=== PATIENT | male | born 1995 | race Caucasian/White ===

== ENCOUNTER 2022-06-27 06:32 | Emergency (ER) | payer OTHER ==
[2022-06-27 06:38] VITALS: BP 149/84
[2022-06-27] MEDS: MOTRIN PO STA (07:16)
--- NOTE | 2022-06-27 07:19 | PCM.EKG ---
[facility] Test Date: 2022-06-27 Test Time: 07:13:26 Pat Name: ALTHEA AZAR Department: [id number] Room: Gender: M Care Worker: VIC : 1995 Requested By: AMY SIDDIQUI Order Number: [id number] Reading MD: Measurements Intervals [place] Rate: 61 P: 30 NC: 178 QRS: 81 QRSD: 103 T: 70 QT: 394 QTc: 397 Interpretive Statements Sinus rhythm ST elevation suggests acute pericarditis No previous ECG available for comparison Please click the below link to view image of tracing.
[2022-06-27 07:48] LABS: BASOPHIL # 0.1 10^3/uL (0.0-0.1); BASOPHIL % 0.6 % (0.0-0.2); EOSINOPHIL # 0.3 10^3/uL (0.0-0.2); EOSINOPHIL % 3.6 % (0.0-5.0); LYMPHOCYTES # 1.67 10^3/uL1 (1.0-4.8); MEAN CORP HGB 29.9 pg (26-34); MONOCYTES # 0.5 10^3/uL (0.3-0.8); MONOCYTES % 6.1 % (5.0-12.0); NEUTROPHIL # 5.8 10^3/uL (1.8-7.7); NEUTROPHILS % 69.5 % (41.0-85.0); PLATELET COUNT 297 10^3/uL (150-400)
[2022-06-27 08:08] LABS: CARBON DIOXIDE 30.7 mmol/L (20.0-32); GLUCOSE 92 mg/dL (70-110)
--- NOTE | 2022-06-27 08:40 | ER.PDOC ---
General Chief Complaint: Chest Pain-Non Cardiac Nature Stated Complaint: CHEST PAIN Time seen by MD: 07:00 Source: patient Exam Limitations: no limitations History of Present Illness Initial Comments 27-year-old male with no significant medical problems, presents with 1 day of chest pain. Points to left side of the chest wall. States it does hurt with ce rtain movements. Lifting his arm does make it worse. Breathing and does make it worse. No fever or chills. No cough or congestion. No leg pain or edema. Non-smoker Timing/Duration: 24 hours Severity/Quality: moderate Radiation: arms Activities at Onset: activity/exertion Allergies: Coded Allergies: No Known Allergies (Unverified , 06/27/22) Past Medical History Medical History: no pertinent history Surgical History: no surgical history Social History Alcohol Use: occassionally Drug Use: none All Other Systems: Reviewed and Negative Physical Exam General Appearance: No Apparent Distress HEENT: Normal ENT Inspection Neck: Normal Inspection Respiratory: lungs clear, no respiratory distress Cardiovascular: Normal Peripheral Pulses, Regular Rate, Rhythm, No Edema, No Murmur Gastrointestinal: Soft Extremities: Normal Inspection Neurologic/Psychiatric: Alert, Oriented x 3 Skin: Normal Color Lymphatic: No Adenopathy Results/Orders Results/Orders Orders - AMY SIDDIQUI MD EKG (06/27/22 07:10) Ibuprofen (Motrin) (06/27/22 07:10) Cbc With Auto Diff (06/27/22 07:34) Comprehensive Metabolic Panel (06/27/22 07:34) Troponin I High Sensitivity (06/27/22 07:34) Vital Signs Date Time Temp Pulse Resp B/P (MAP) Pulse Ox O2 Delivery O2 Flow Rate FiO2 06/27/22 06:38 97.8 74 18 149/84 (105) 99 Room Air* 0 21 06/27/22 06:38 97.8 74 18 99 06/27/22 06:38 97.8 74 18 Administered Medications Medications (Trade) Dose Ordered Sig/Karrie Route PRN Reason Start Time Stop Time Status Last Admin Dose Admin Ibuprofen (Motrin) 800 mg STAT STAT PO 06/27/22 07:10 06/27/22 07:11 DC 06/27/22 07:16 800 MG Laboratory Tests Test 06/27/22 07:43 White Blood Count 8.4 10^3/uL (4.5-11.0) Red Blood Count 4.69 10^6/uL (4.50-5.90) Hemoglobin 14.0 g/dL (13.9-16.3) Hematocrit 42.4 % (37.0-53.0) Mean Corpuscular Volume 90.4 fL (78-100) Mean Corpuscular Hemoglobin 29.9 pg (26-34) Mean Corpuscular Hemoglobin Concent 33.0 g/dL (33-36.5) Red Cell Distribution Width 12.0 % (11.5-14.5) Platelet Count 297 10^3/uL (150-400) Mean Platelet Volume 9.8 fL (7.8-11.0) Neutrophils (%) (Auto) 69.5 % (41.0-85.0) Lymphocytes (%) (Auto) 20.0 % (24.0-44.0) L Monocytes (%) (Auto) 6.1 % (5.0-12.0) Neutrophils # (Auto) 5.8 10^3/uL (1.8-7.7) Lymphocytes # (Auto) 1.67 10^3/uL1 (1.0-4.8) Monocytes # (Auto) 0.5 10^3/uL (0.3-0.8) Absolute Immature Granulocyte (auto 0.02 10^3 u/L (0-2) Absolute Eosinophils (auto) 0.3 10^3/uL (0.0-0.2) H Immature Granulocytes % 0.20 % (0.00-0.50) Eosinophils % 3.6 % (0.0-5.0) Basophils % 0.6 % (0.0-0.2) H Basophils # 0.1 10^3/uL (0.0-0.1) Sodium Level 142 mmol/L (132-145) Potassium Level 4.5 mmol/L (3.6-5.2) Chloride Level 107.0 mmol/L (96-109) Carbon Dioxide Level 30.7 mmol/L (20.0-32) Anion Gap 8.8 Blood Urea Nitrogen 14 mg/dL (7-18) Creatinine 1.10 mg/dL (0.59-1.40) Estimated GFR () 98.7 (>/=60) Est GFR (CKD-EPI)(Non-Afr Malian) 81.6 (>/=60) BUN/Creatinine Ratio 12.0 Glucose Level 92 mg/dL (70-110) Calcium Level 9.4 mg/dL (8.4-10.5) Total Bilirubin 0.4 mg/dL (0.2-1.0) Aspartate Amino Transferase (AST) 17 U/L (0-35) Alanine Aminotransferase (ALT) 21 U/L (12-78) Alkaline Phosphatase 55 U/L (50-136) Troponin I High Sensitivity < 4 ng/L (0-75) Total Protein 7.5 g/dL (6.4-8.2) Albumin 4.2 g/dL (3.4-5.0) Globulin 3.3 Albumin/Globulin Ratio 1.272 Progress Progress EKG shows sinus rhythm, rate of 61, normal axis, normal QRS, no ST segment elevation or depression There is no true ST elevation on his EKG, it is J-point elevation as he is a young athletic male. Troponin is completely negative. No fever. Counseled him on supportive care for costochondritis, NSAIDs, rest, follow-up with primary as needed ER DEPART Departure Time of Disposition: 08:40 Disposition: 01 HOME / SELF CARE / HOMELESS Impression: Primary Impression: Costochondritis, acute Condition: Improved Referrals: PCP,UNKNOWN (PCP) PRIMARY CARE PROVIDER Duration or Time Spent with Pa: AMY Pedraza MD Jun 27, 2022 08:40
== END 2022-06-27 08:48 | disposition home or self-care (01) ==
LOC: ER 06:32
DX: M94.0 Chondrocostal junction syndrome [Tietze] (principal)
CPT/HCPCS: 36415; 80053; 84484; 85025; 93005; 99284